=== PATIENT | male | born 1960 | race Caucasian/White ===

== ENCOUNTER → 2016-10-01 | Day surgery (SDC) | payer BC ==
[~2016-10-01] VITALS: Ht 188 cm; Wt 103.0 kg
[~2016-10-01] MED LIST: CIALIS5 MG PO; COZAAR50 MG PO; LOPRESSOR25 MG PO; POTASSIUM CHLO20 ME2 PO; PRILOSEC20 MG PO; PRINIVIL (ZESTR20 MG PO; SUPER B COMPLE150 MG PO; THERA-VITE W/ B1 TAB PO; TRILEPTAL600 MG PO; [UNRECOGNIZED DRUG - OTHER] PO
== END ==
LOC: GPOC 09-29 09:00 → GEND 06:50 → GPOC 07:00
PROC: 0DBP8ZX Excision of Rectum, Via Natural or Artificial Opening Endoscopic, Diagnostic (ICD-10-PCS; principal; 2016-10-01)
PROC: 0DJ08ZZ Inspection of Upper Intestinal Tract, Via Natural or Artificial Opening Endoscopic (ICD-10-PCS; 2016-10-01)
DX: K62.1 Rectal polyp (principal); K57.30 Diverticulosis of large intestine without perforation or abscess without bleeding; K21.9 Gastro-esophageal reflux disease without esophagitis; I10 Essential (primary) hypertension; G40.909 Epilepsy, unspecified, not intractable, without status epilepticus; G47.33 Obstructive sleep apnea (adult) (pediatric); Z98.890 Other specified postprocedural states; Z90.49 Acquired absence of other specified parts of digestive tract; Z91.040 Latex allergy status; Z88.1 Allergy status to other antibiotic agents; Z79.899 Other long term (current) drug therapy
CPT/HCPCS: J2001; J7030